=== PATIENT | female | born 1950 | race Caucasian/White ===

== ENCOUNTER 2021-09-30 11:17 | Day surgery (SDC) | payer MEDICARE ==
[2021-09-30] VITALS (9 sets, daily range): BP systolic 106–143; BP diastolic 50–66; PULSE 57–76; TEMP 97.7–98.4
[~2021-09-30] VITALS: Ht 152.4 cm; Wt 74.9 kg
[~2021-09-30 11:17] MED LIST: B COMPLEX #11 TA1 PO; CALCIUM 600MG+D1 TAB PO; CLARITIN 1010 MG/TAB PO; DESYREL 50MG50 MG PO; FLUOROURACIL5% TP; LAMISIL250 M1; LIPITOR 40MG TA40 MG PO; MOBIC15 MG PO; NEURONTIN100 MG/CAP PO; PRIL40 PO; PRINZIDE 12.5 M1 TAB PO; PROZAC 20MG20 MG PO; STOOL SOFTENER100 M2 PO; TYLENOL PM EXTR1 TA1 PO; VITAMIN D 400400 IU PO; VOLTAREN GEL 1%1 TU TP
--- NOTE | 2021-09-30 15:25 | NUR ---
PATIENT ADMITED INTO ROOM 342 POST OP. ORIENTED BUT A LITTLE DROWSY. VSS. NO C/O PAIN OR NAUSEA. IV FLUIDS INFUSING INTO LEFT HAND IV. LIQUIDS AT BEDSIDE. LLE DRESSING IS CD&I WITH ACEWRAP. TEDS TO RLE. SCD'S TO BLE. POSITIVE PEDAL PULSES TO BLE. HEAD TO TOE ASSESSMENT COMPLETE. ORIENTED TO ROOM. FAMILY AT BEDSIDE. CALL LIGHT IN REACH.
--- NOTE | 2021-09-30 20:15 | NUR ---
ASSISTED PT TO BATHROOM WITH WALKER AND GAIT BELT, ABLE TO VOID ON BSC. ASSISTED WITH AMBULATING OUT TO HALLWAY AND BACK TO BED. DOES WELL WITH MINIMAL PAIN.
--- NOTE | 2021-09-30 20:22 | NUR ---
PT IN BED. ASKING FOR PAIN MEDS, RATING PAIN TO LEFT KNEE 6/10. TRAMADOL GIVEN WITH HS MEDS. HAS INT TO LEFT HAND, FLUSHES WELL. HAS AQUACEL DRSG TO LEFT KNEE COVERED WITH CHANG WRAP.
--- NOTE | 2021-09-30 23:53 | NUR ---
MEDICATED WITH BENADRYL 25MG PO AND TRAMADOL 50MG PO FOR LEFT KNEE PAIN.
[2021-10-01 03:37] VITALS: BP 141/65; PULSE 65; TEMP 97.7
--- NOTE | 2021-10-01 03:56 | NUR ---
PT REPORTS PAIN 8/10 TO LEFT KNEE AND NOT RESTING WELL. ASSISTED TO BATHROOM AND BACK TO BED. MEDICATED WITH DILAUDID 0.5MG IVP. SCHEDULED ANCEF GIVEN AT THIS TIME ALSO.
--- NOTE | 2021-10-01 06:00 | NUR ---
PT REPORTS GOOD PAIN RELIEF WITH LAST DOSE OF DILAUDID. TAKES SCHEDULED AM MED AT THIS TIME.
--- NOTE | 2021-10-01 06:51 | NUR ---
up to bathroom with assitance, bedside shift report received from CANELO Tolentino
[2021-10-01 07:17] LABS: HEMATOCRIT 28.9 % (37.0-47.0); HEMOGLOBIN 9.7 g/dl (12.5-16.0)
--- NOTE | 2021-10-01 08:01 | NUR ---
had breakfast and tolerated well, full assessment completed, see interventions for further info,
--- NOTE | 2021-10-01 08:21 | NUR ---
c/o pain to left knee and medicated with trmadol 50mg po
[2021-10-01 08:22] VITALS: BP 128/45; PULSE 72; TEMP 98.4
--- NOTE | 2021-10-01 09:04 | NUR ---
physical therapy in to work with patient, ambulated out to [place] and then back to room and into recliner
--- NOTE | 2021-10-01 09:15 | NUR ---
occupational therapy in to work with patient
--- NOTE | 2021-10-01 09:32 | NUR ---
YANA met with the patient to discuss discharge plan. The patient lives in [place] with her brother, Cortez (ph#[phone]), and [id number]. She reports independence with ADLs and has a cane and walker. The patient's PCP is Dr. Aftab Lin and she receives her medications from [facility]. The patient does not have a DPOA-HC, but she was interested in obtaining a form. YANA provided. The patient plans to return home with her family and receive outpatient PT at the [facility] upon discharge today. No additional needs at this time. *Discharge plan: home with family and outpatient PT*
--- NOTE | 2021-10-01 10:50 | NUR ---
remains up in chair and appears to be dozing, resp quiet and easy
[2021-10-01 12:12] VITALS: BP 119/47; PULSE 65; TEMP 98
--- NOTE | 2021-10-01 12:45 | NUR ---
sitting up in bed eating lunch, c/o pain to left knee and medicated with tramadol 50mg po
--- NOTE | 2021-10-01 14:11 | NUR ---
up to bathroom and then ambulated out to [place] and to nurses station without any c/os of feeling dizzy, she states she thinks she was just very tired earlier, will plan discharge later
--- NOTE | 2021-10-01 14:45 | NUR ---
discharge instructions given to patient, verbalizes understanding
--- NOTE | 2021-10-01 15:20 | NUR ---
discharged per WC
== END 2021-10-01 15:20 | disposition home or self-care (01) ==
LOC: SURG 11:17 → SDCO 11:17 → SURG 15:25 → SDCO 10-01 15:20
PROVIDERS: Orthopaedic Surgery Sports Medicine
DX: M17.12 Unilateral primary osteoarthritis, left knee (principal)
CPT/HCPCS: OP; C1713; C1776; J0690; J1100; J1170; J2250; J2405; J2704; J3010; J7120

== ENCOUNTER 2023-03-15 08:23 | Outpatient (CLI) | payer MEDICARE ==
[~2023-03-15] VITALS: Ht 152.5 cm; Wt 67.0 kg
[~2023-03-15 08:23] MED LIST changes: +PRILOSEC 20MG20 MG PO; +ZESTRIL 10MG10 MG PO
[2023-03-15 08:52] VITALS: PULSE 70; TEMP 98.7
[2023-03-15] MEDS ORDERED: ULTRAM 50MG TAB50 MG PO (09:35)
--- NOTE | 2023-03-15 11:21 | NUR ---
Please see merge documentation for record of itnerventions, vitals and medications administered during vertebroplasty.
[2023-03-15 11:40] VITALS: BP 103/68; PULSE 61
--- NOTE | 2023-03-15 11:40 | NUR ---
pt to eu 11 via bed, awake and alert, no c/o increase pain to back, states feels "about the same" family in room, call light in reach, 2 bandaids to back clean and dry. takes coffee and muffin
--- NOTE | 2023-03-15 11:45 | NUR ---
Pt transported back to express unit via stretcher after vertebroplasty. Report given to Megan LEMOS. PT resting comfortably, supine on stretcher with hob elevated approx 15 deg. CMS intact to lower extremities. Hooked up to bp and pulse ox monitoring for post procedure period. Pt denies any pain at this time. Her brother and sister in law are at bedside. call light in reach.
[2023-03-15 12:00] VITALS: BP 97/56; PULSE 60
[2023-03-15 12:15] VITALS: BP 101/59; PULSE 61
--- NOTE | 2023-03-15 12:30 | NUR ---
Dr Causey into see pt, pt up in room, verbal order that pt may be discharged when ready. IV d'cd pt dressed, has no increase pain, bandaids remain the the same, pt discharged via w/c at 1300 to car with family
[2023-03-15 12:45] VITALS: BP 114/50; PULSE 68
== END 2023-03-15 13:00 | disposition home or self-care (01) ==
LOC: COL.CAR 08:23
DX: M48.56XA Collapsed vertebra, not elsewhere classified, lumbar region, initial encounter for fracture (principal)
CPT/HCPCS: C1713; J0665; J2250; J3010; J7030; J7050